=== PATIENT | female | born 2000 | race Caucasian/White ===

== ENCOUNTER 2024-02-01 13:41 | Day surgery (SDC) | payer SELFPAY ==
[2024-02-01 15:12] LABS: BASOPHILS PERCENT AUTO 0.2 % (0.0-1.0); EOSINOPHILS ABSOLUTE AUTO 0.1 K/mm3 (0.0-0.4); EOSINOPHILS PERCENT AUTO 0.4 % (0.0-6.0); HEMATOCRIT 40.7 % (37.0-47.0); HEMOGLOBIN 13.9 gm/dl (12.0-16.0); IMMATURE GRAN ABSOLUTE AUTO 0.11 K/mm3 (0.00-0.05); IMMATURE GRAN PERCENT AUTO 0.5 % (0.0-0.4); LYMPHOCYTES ABSOLUTE AUTO 1.5 K/mm3 (1.0-4.8); MEAN CORPUSCULAR HEMOGLOBIN 31.1 pg (28.0-32.0); MEAN CORPUSCULAR HGB CONC 34.2 g/dl (32.0-36.0); MEAN CORPUSCULAR VOLUME 91.1 fl (83.0-99.0); MONOCYTES ABSOLUTE AUTO 0.8 K/mm3 (0.0-0.8); MONOCYTES PERCENT AUTO 3.7 % (0.0-8.0); NEUTROPHILS ABSOLUTE AUTO 18.7 K/mm3 (1.8-7.7); NEUTROPHILS PERCENT AUTO 88.2 % (41.0-71.0); PLATELET COUNT,PLT 326 K/mm3 (150-400); RED BLOOD CELL COUNT 4.47 M/mm3 (4.10-5.30); WHITE BLOOD CELL COUNT,WBC 21.14 K/mm3 (3.9-11.3)
[2024-02-01 15:28] LABS: ALANINE AMINOTRANSFERASE,ALT 24 U/L (14-59); ALBUMIN 3.9 g/dl (3.4-5.0); ALKALINE PHOSPHATASE 42 U/L (46-116); ASPARTATE AMNIOTRANSFERASE,AST 18 U/L (15-37); BILIRUBIN TOTAL 0.4 mg/dL (0.2-1.0); BLOOD UREA NITROGEN,BUN 16 mg/dL (7-18); BUN/CREATININE RATIO 17.8 (14-18); C-REACTIVE PROTEIN 0.86 mg/dL (<0.30); CALCIUM 9.3 mg/dL (8.5-10.1); CARBON DIOXIDE,CO2 18 mEq/L (21-32); CHLORIDE,CL 102 mEq/L (98-107); CREATININE 0.9 mg/dL (0.55-1.02); ESTIMATED GFR 91 mL/min (>60); GLUCOSE RANDOM 156 mg/dL (70-99); SODIUM,NA 136 mEq/L (136-145)
[2024-02-01] MEDS: Sodium Chloride 0.9% 1,000 ML IV STA (15:36)
[2024-02-01] MEDS: HYDROmorphone 0.5 MG/0.5 ML Syringe IVPUSH ONE (15:39)
[2024-02-01] MEDS: Ondansetron 4 MG/2 ML SDV IVPUSH ONE (15:39)
[2024-02-01] MEDS: Iopamidol 612 MG/ML 100 ML Bottle IVPUSH ONE (15:52)
[2024-02-01] MEDS: Sodium Chloride 0.9% 10 ML Syringe FLUSH ONE (15:52)
[2024-02-01] MEDS: Sodium Chloride 0.9% 10 ML Syringe FLUSH PRN (15:54)
[2024-02-01] MEDS ORDERED: Ondansetron 4 MG/2 ML SDV ONE (16:53)
[2024-02-01] MEDS ORDERED: Rocuronium 50 MG/5 ML Vial ONE (16:53)
[2024-02-01] MEDS ORDERED: Midazolam 1 MG/ML 2 ML SDV ONE (16:53)
[2024-02-01] MEDS ORDERED: Lidocaine 1% 5 ML VIAL ONE (16:53)
[2024-02-01] MEDS ORDERED: Propofol 200 MG/20 ML SDV ONE (16:53)
[2024-02-01] MEDS ORDERED: fentaNYL 100 MCG/2 ML SDV ONE ×2 (16:54→17:03)
[2024-02-01 17:00] LABS: APPEARANCE,URINE CLEAR (Clear); BILIRUBIN,URINE NEGATIVE (Negative); COLOR,URINE YELLOW (Yellow); GLUCOSE,URINE NEGATIVE (Negative); KETONES,URINE 2+ (Negative); LEUKOCYTE ESTERASE,URINE NEGATIVE (Negative); NITRITE,URINE NEGATIVE (Negative); OCCULT BLOOD,URINE NEGATIVE (Negative); PH,URINE 6.5 (5.0-8.0); PROTEIN,URINE NEGATIVE (Negative); UROBILINOGEN,URINE 0.2 (0.2-1.0)
[2024-02-01] MEDS ORDERED: cefOXitin 2 GM in Sodium Chloride 0.9% 50 ML IV ONE (17:18)
[2024-02-01] MEDS ORDERED: HYDROmorphone 0.5 MG/0.5 ML Syringe ONE (17:27)
[2024-02-01] MEDS ORDERED: Neostigmine Methylsulfate 10 MG/10 ML MDV ONE (17:27)
[2024-02-01] MEDS ORDERED: Lactated Ringers 1,000 ML ONE (17:34)
[2024-02-01] MEDS: Potassium Chloride 10 MEQ in Premix Bag 1 BAG IV SCH (17:59)
[2024-02-01] MEDS ORDERED: cefOXitin 2 GM Vial ONE (18:19)
[2024-02-01] MEDS: EPINEPHrine 1 MG/ML SDV ONE (18:24)
[2024-02-01] MEDS: Bupivacaine 0.5% 30 ML SDV ONE (18:24)
[2024-02-01] MEDS: Lactated Ringers 1,000 ML IV SCH (19:00)
[2024-02-01] MEDS: oxyCODONE 5 MG Tab PO ONE (20:00)
== END 2024-02-01 21:25 | disposition home or self-care (01) ==
LOC: JD.ED 13:41 → JD.SDS 17:29
PROVIDERS: ATTEND Surgery
DX: K35.80 Unspecified acute appendicitis (principal); R63.0 Anorexia; R11.2 Nausea with vomiting, unspecified; F17.210 Nicotine dependence, cigarettes, uncomplicated
CPT/HCPCS: 00840; 36415; 74177; 74177-26; 80053; 81003; 84703; 85025; 86140; 99140; A9270-GY; J0171; J0665; J0694; J1170; J1596; J2250; J2405; J2704; J2710; J3010; J3480; J3490; J7030; J7120; Q9967